=== PATIENT | female | born 1965 | race Caucasian/White ===

== ENCOUNTER 2023-08-03 09:00 | Outpatient (RCR) | payer OTHER ==
[~2023-08-03 09:00] MED LIST: AMLODIPINE BESY10 MG PO; CELEBREX200 MG PO; CLARITIN10 MG PO; COQ-10100 MG; PROBIOTIC; [UNRECOGNIZED DRUG - OTHER]
== END 2023-08-07 ==
LOC: PT 09:00
PROVIDERS: ATTEND Physician Assistant
DX: Z47.1 Aftercare following joint replacement surgery (principal); Z96.651 Presence of right artificial knee joint

== ENCOUNTER 2023-10-02 07:00 | Outpatient (RCR) | payer OTHER | END 2023-10-07 | LOC: PT 07:00 | PROVIDERS: ATTEND Physician Assistant | DX: Z47.1 Aftercare following joint replacement surgery (principal); Z96.651 Presence of right artificial knee joint ==

== ENCOUNTER 2023-10-30 07:00 | Outpatient (RCR) | payer OTHER | END 2023-11-07 | LOC: PT 07:00 | PROVIDERS: ATTEND Physician Assistant | DX: Z47.1 Aftercare following joint replacement surgery (principal); Z96.651 Presence of right artificial knee joint ==

== ENCOUNTER 2023-11-08 06:37 | Outpatient (RCR) | payer OTHER | END 2023-12-08 | LOC: PT 06:37 | PROVIDERS: ATTEND Physician Assistant | DX: Z47.1 Aftercare following joint replacement surgery (principal); Z96.651 Presence of right artificial knee joint ==